=== PATIENT | male | born 1995 | race Caucasian/White ===

== ENCOUNTER → 2021-09-06 | Outpatient (CLI) | payer OTHER ==
[2021-09-06 16:01] LABS: ALKALINE PHOSPHATASE 63 U/L (45-117); BUN 11 mg/dl (7-24); CHLORIDE 110 mmol/L (98-107); CREATININE 0.82 mg/dL (0.70-1.30); POTASSIUM 4.2 mmol/L (3.5-5.1); SGOT/AST 21 IU/L (3-35); SGPT/ALT 33 U/L (12-78); SODIUM 144 mmol/L (136-145); TOTAL PROTEIN 7.3 gm/dL (6.4-8.2)
[2021-09-08 12:07] LABS: HBV HBV DNA not detected IU/mL (.)
== END | disposition home or self-care (01) ==
LOC: LAB 15:19
PROVIDERS: ATTEND Family Medicine
DX: Z72.89 Other problems related to lifestyle (principal); Z11.3 Encounter for screening for infections with a predominantly sexual mode of transmission; Z11.4 Encounter for screening for human immunodeficiency virus [HIV]; Z11.59 Encounter for screening for other viral diseases; Z51.81 Encounter for therapeutic drug level monitoring

== ENCOUNTER 2021-12-15 13:40 | Emergency (ER) | payer OTHER ==
[~2021-12-15] VITALS: Ht 185.4 cm; Wt 88.5 kg
[2021-12-15 14:13] LABS: BASO % 0.7 % (0.0-1.0); EOS # 0.1 10*3/uL (0.0-0.4); EOS % 1.4 % (1.0-4.0); HEMATOCRIT 45.7 % (42.0-52.0); LYMPH # 1.8 10*3/uL (1.3-4.4); LYMPH % 41.1 % (27.0-41.0); MEAN CELL VOLUME 91.2 fl (80.0-94.0); MEAN CORPUSCULAR HGB 31.1 pg (27.0-31.0); MEAN CORPUSCULAR HGB CONC 34.1 g/dl (33.0-37.0); MEAN PLATELET VOLUME 9.3 fl (9.6-12.3); MONO # 0.4 10*3/uL (0.1-1.0); MONO % 9.6 % (3.0-9.0); PLATELET COUNT AUTOMATED 254 10*3/uL (130-400); RED BLOOD COUNT 5.01 10*6/uL (4.50-5.90); RED CELL DISTRI WIDTH 11.9 % (0-14.5); WHITE BLOOD COUNT 4.3 10*3/uL (4.8-10.8)
[2021-12-15 14:27] LABS: ALKALINE PHOSPHATASE 57 U/L (45-117); BUN 8 mg/dl (7-24); CHLORIDE 110 mmol/L (98-107); CREATININE 0.83 mg/dL (0.70-1.30); LIPASE 103 U/L (73-393); POTASSIUM 4.2 mmol/L (3.5-5.1); SGOT/AST 18 IU/L (3-35); SGPT/ALT 35 U/L (12-78); SODIUM 143 mmol/L (136-145); TOTAL PROTEIN 7.4 gm/dL (6.4-8.2)
[2021-12-15 14:50] LABS: BILIRUBIN Negative (Negative); BLOOD Negative (Negative); CLARITY Clear (Clear); COLOR Yellow (Yellow); GLUCOSE Negative (Negative); KETONE Negative (Negative); LEUKO ESTERASE Negative (Negative); NITRITE Negative (Negative)
[2021-12-15 15:03] LABS: BACTERIA 1+; HYALINE CAST 0-2; WBC 0-2 wbc/hpf (0-5)
[2021-12-15] MEDS ORDERED: ONDANSETRON4 MG SL (15:28)
== END 2021-12-15 15:35 | disposition home or self-care (01) ==
LOC: ED 13:40
PROVIDERS: Physician Assistant
DX: R11.2 Nausea with vomiting, unspecified (principal); K59.00 Constipation, unspecified; R10.9 Unspecified abdominal pain